=== PATIENT | male | born 1985 | race Caucasian/White ===

== ENCOUNTER 2017-09-22 12:48 | Outpatient (CLI) | payer OTHER ==
--- NOTE | 2017-09-22 16:06 | CT ---
CT ABDOMEN AND PELVIS NONCONTRAST: HISTORY: Renal stones. Scrotal pain. COMPARISON: 12/20/2006 FINDINGS: There is diffuse atrophy of the cortex of the right kidney. Each renal collecting system, ureter, a nd urinary bladder are incompletely distended. Extensive medullary calcification of the right kidney is apparent. Medullary calcification also inv olves the left kidney. A dominant 1.8 cm oval calculus is present within a nondilated calyx at the superior pole of the left kidney. No stones are apparent within the urinary bladder or ureters. Lack of contrast limits evaluation for other abnormalities. Phleboliths are apparent within the ret roperitoneum. There are degenerative changes of the lumbar spine. IMPRESSION: 1. Bilateral renal calculi and medullary calcinosis. The largest calculus is a 1.8 cm calculus at the superior pole left kidney. 2. Right renal atrophy. POS: [facility]
== END 2017-09-22 12:49 | disposition home or self-care (01) ==
LOC: CT 12:48
PROVIDERS: ATTEND Urology
DX: N30.01 Acute cystitis with hematuria (principal); N20.0 Calculus of kidney; N26.1 Atrophy of kidney (terminal); Z87.442 Personal history of urinary calculi
CPT/HCPCS: 74176

== ENCOUNTER 2017-11-01 13:46 | Outpatient (CLI) | payer OTHER ==
--- NOTE | 2017-11-01 17:41 | NM ---
NUCLEAR MEDICINE LASIX RENAL SCAN 11/01/17 COMPARISON: CT abdomen/pelvis 09/22/17. HISTORY: Atrophy of the kidney. TECHNIQUE: A nuclear medicine renal scan was performed using 7.8 millicuries technetium 99m MAG3. Lasix was also given 15 minutes prior to the start of the procedure. FINDINGS: The left renal curve is normal in appearance. The left kidney has a normal time to peak and appropria te washout. The right kidney has a flattened curve with a delay in time to peak. The differential karla al function is 83% on the left and 17% on the right. IMPRESSION: 1. The right renal curve suggests chronic right kidney disease. 2. Normal left renal curve. POS: [facility]
== END 2017-11-01 13:47 | disposition home or self-care (01) ==
LOC: NM 13:46
PROVIDERS: ATTEND Urology
DX: N26.1 Atrophy of kidney (terminal) (principal)
CPT/HCPCS: 78708; A4641; A9562

== ENCOUNTER 2017-12-11 12:19 | Outpatient (CLI) | payer OTHER ==
[2017-12-11 13:49] LABS: Hemoglobin 17.3 g/dL (14.0-18.0); Mean Corpuscular HGB CONC 32.7 g/dL (32.0-36.0); Mean Corpuscular Hemoglobin 30.8 pg (27.0-31.0); Mean Corpuscular Volume 94.3 fl (80.0-94.0); Mean Platelet Volume 8.8 fL (7.4-10.4); Platelet Count 228 thou/uL (130-400); RBC Distribution Width 12.1 % (11.5-14.5); Red Blood Cell (RBC) Count 5.61 mill/uL (4.70-6.10); White Blood Cell (WBC) Count 7.5 thou/uL (4.8-10.8)
[2017-12-11 14:16] LABS: Anion Gap 13 mmol/L (10-20); BUN (Urea Nitrogen) 16 mg/dL (8.9-20.6); Calc. Creatinine Clearance 0 mL/min (70-130); Calcium 9.7 mg/dL (7.8-10.44); Carbon Dioxide 23 mmol/L (22-29); Chloride 109 mmol/L (98-107); Estimated GFR-MDRD 57; Glucose 95 mg/dL (70-105); Potassium 4.3 mmol/L (3.5-5.1); Sodium 141 mmol/L (136-145)
== END 2017-12-11 12:20 | disposition home or self-care (01) ==
LOC: LABBT 12:19
PROVIDERS: ATTEND Urology
DX: Z01.812 Encounter for preprocedural laboratory examination (principal); N20.0 Calculus of kidney
CPT/HCPCS: 80048; 81001; 85027; 87086

== ENCOUNTER 2017-12-19 07:21 | Day surgery (SDC) | payer OTHER ==
[2017-12-11 12:57] VITALS: BMI 22.8
--- NOTE | 2017-12-19 08:35 | RAD ---
ABDOMEN FRONTAL VIEW SERIES TWO VIEWS: Indication: Left renal stones. FINDINGS: There are calcific densities overlying the renal shadows bilaterally, more numerous on the right. The re is a nonspecific bowel gas pattern, with moderate retained fecal material in the colon. Osseous st ructures are intact. IMPRESSION: Calculi are present overlying the bilateral renal shadows, more numerous on the right. POS: [facility]
[2017-12-19] MEDS ORDERED: Levofloxacin 500 mg/D5W 100 ml Premix Bag ONE (09:02)
[2017-12-19] MEDS ORDERED: Midazolam HCl 2 mg/2 ml Vial ONE (09:24)
[2017-12-19] MEDS ORDERED: Fentanyl 100 MCG/2 ML VIAL ONE (09:31)
[2017-12-19] MEDS ORDERED: Iothalamate Meglumine 60% 50 ML VIAL FS ONE (09:35)
[2017-12-19] MEDS ORDERED: Furosemide 20 MG/2 ML VIAL ONE (10:07)
--- NOTE | 2017-12-19 10:55 | OP ---
DATE OF SERVICE: 12/19/2017 PREOPERATIVE DIAGNOSIS: Left renal stone in his solitary functioning kidney. POSTOPERATIVE DIAGNOSIS: Left renal stone in his solitary functioning kidney. PROCEDURE: Cystoscopy, left retrograde pyelogram, insertion of left ureteral stent, 6 x 24 double-J and left extracorporal shock-wave lithotripsy. SURGEON: Dr. Dias. ANESTHESIA: General with laryngeal mask airway. FINDINGS: Adequate fragmentation of a 1.5 cm mid pole stone. COMPLICATIONS: No complications. DRAINS: No drain remaining other than the internal the double-J. ESTIMATED BLOOD LOSS: No blood loss. SPECIMEN: No specimens. INDICATIONS: The patient is a 32-year-old male I saw in the office for stone disease and noted to rizzo ve a nonfunctioning right kidney filled with stone that was relatively asymptomatic as well as a 1.5 cm stone in the left kidney of his solitary functioning kidney, so we opted for definitive therapy. DESCRIPTION OF PROCEDURE: The patient was brought into the room by Anesthesia and laid on table in s upine position. After receiving general anesthetic, legs were placed in lithotomy position. His per ineum was prepped and draped in sterile fashion. Using a 22-Mongolian cystoscope and a 30-degree lens i t was traversed and bladder inspected. The left ureteral orifice was identified and a retrograde donato logram was performed. Measurements were taken for stent. A 6 x 24 double-J was placed. A good coil was visualized in the renal pelvis via fluoroscopy and a good coil was visualized in the bladder via cystoscopy. Scope was broken apart, bladder drained, and then removed in its entirety. The patient was then repositioned supine. In supine position, a total of 3000 shocks at a power of 5-6, maximum rate of 70 per minute, were the n delivered to the stone with good fragmentation noted. The patient tolerated the procedure well and was then awakened and transferred to the PACU in stable condition.
[2017-12-19] MEDS ORDERED: Ondansetron HCl/PF 4 MG/2 ML Vial ONE (15:09)
[2017-12-19] MEDS ORDERED: Lidocaine 1% PF 5 ML VIAL ONE (15:09)
[2017-12-19] MEDS ORDERED: PROPOFOL 200 MG/20 ML VIAL ONE (15:09)
[2017-12-19] MEDS ORDERED: Dexamethasone 20 MG/5 ML VIAL ONE (15:09)
[2017-12-19] MEDS ORDERED: PHENYLEPHRINE-NS 100 MCG/ML 10 ML SYRINGE ONE (15:09)
== END 2017-12-19 12:40 | disposition home or self-care (01) ==
LOC: SDC 07:21
PROVIDERS: ATTEND Urology
PROC: 0T9680Z Drainage of Right Ureter with Drainage Device, Via Natural or Artificial Opening Endoscopic (ICD-10-PCS; principal; 2017-12-19)
PROC: 0TF4XZZ Fragmentation in Left Kidney Pelvis, External Approach (ICD-10-PCS; principal; 2017-12-19)
DX: N20.0 Calculus of kidney (principal); F71 Moderate intellectual disabilities; G40.209 Localization-related (focal) (partial) symptomatic epilepsy and epileptic syndromes with complex partial seizures, not intractable, without status epilepticus; K21.9 Gastro-esophageal reflux disease without esophagitis; N26.1 Atrophy of kidney (terminal); F17.210 Nicotine dependence, cigarettes, uncomplicated; Z79.899 Other long term (current) drug therapy; Z88.1 Allergy status to other antibiotic agents; Z96.9 Presence of functional implant, unspecified
CPT/HCPCS: 74018; C1758; J1100; J1940; J1956; J2001; J2250; J2405; J2704; J3010; Q9961

== ENCOUNTER 2018-01-17 10:20 | Outpatient (CLI) | payer OTHER ==
--- NOTE | 2018-01-17 12:40 | RAD ---
ABDOMEN 1 VIEW: HISTORY: Kidney stones. COMPARISON: Radiograph 12/19/17. FINDINGS: Innumerable calculi are seen projecting over both renal shadows. No dilated air-filled loops of larg e or small bowel. No calculi are seen projecting over the expected location of the ureters. Moderate stool burden with in the rectal vault. IMPRESSION: Bilateral renal calculi This is similar. POS: [facility]
== END 2018-01-17 10:21 | disposition home or self-care (01) ==
LOC: RAD 10:20
PROVIDERS: ATTEND Urology
DX: N20.0 Calculus of kidney (principal)
CPT/HCPCS: 74018

== ENCOUNTER 2018-07-12 10:11 | Outpatient (CLI) | payer OTHER ==
--- NOTE | 2018-07-12 12:20 | CT ---
NONCONTRAST CT ABDOMEN AND PELVIS: Date: 07/12/18 HISTORY: Renal stones. Follow-up evaluation. COMPARISON: 09/22/17. FINDINGS: Again noted are multiple nonobstructing bilateral renal calculi, more numerous on the right, with med ullary calcifications present on the right. Right kidney is small in size with renal cortical thinnin g again present. There is a hypodense lesion seen within the inferior pole left kidney measures 1.7 cm. This cannot be accurately characterized on this exam. Further evaluation with renal ultrasound may be helpful. No renal calculi are seen and there is no hydronephrosis. Urinary bladder is distended and has a norm al nonenhanced CT appearance. The heart is mildly enlarged. The lung bases are clear. The liver, spleen, pancreas, and bilateral adrenal glands demonstrate a grossly normal nonenhanced CT appearance. The appendix is visualized and normal in caliber. The prostate gland is enlarged, measuring 5.5 cm in transverse dimensions. A few scattered colonic diverticula are seen. There has been no interval change compared to the prior exam. IMPRESSION: 1. Hypodense lesion in the inferior pole of left kidney. This was not appreciated on the prior exam, but there was motion artifact through this region on the prior exam. Nonemergent renal ultrasound wo uld be helpful for further characterization. 2. Stable bilateral renal calculi and medullary calcinosis. 3. No evidence of hydronephrosis or hydroureter. The right kidney remains atrophied. 4. Mild cardiomegaly. 5. Enlargement of the prostate gland. POS: [facility]
== END 2018-07-12 10:12 | disposition home or self-care (01) ==
LOC: CT 10:11
PROVIDERS: ATTEND Urology
DX: N20.0 Calculus of kidney (principal); N28.9 Disorder of kidney and ureter, unspecified; N26.1 Atrophy of kidney (terminal); N40.0 Benign prostatic hyperplasia without lower urinary tract symptoms; I51.7 Cardiomegaly
CPT/HCPCS: 74176

== ENCOUNTER 2018-07-24 13:06 | Outpatient (CLI) | payer OTHER ==
[2018-07-24 14:11] LABS: Bilirubin Negative (Negative); Blood, Urine Small (Negative); Clarity CLEAR (Clear); Glucose, Urine (Dipstick) Negative (Negative); Leukocyte Trace (Negative); Nitrite Negative (Negative); Protein, Urine (Dipstick) 100 mg/dL (Neg-Trace); Specific Gravity, Urine 1.022 (1.002-1.036); pH, Urine 6.5 (5.0-9.0)
[2018-07-24 14:13] LABS: Bacteria/HPF None Seen HPF (None Seen); Hyaline Casts/LPF 0-3 HYALINE CAST LPF (0-3 Hyaline); Pathc Cast-AUWi Flag 0.29 (0-2.49); Squamous Epithelial 0-3 HPF (0-3)
[2018-07-24 14:15] LABS: Hemoglobin 18.6 g/dL (14.0-18.0); Mean Corpuscular HGB CONC 33.5 g/dL (32.0-36.0); Mean Corpuscular Hemoglobin 31.7 pg (27.0-31.0); Mean Corpuscular Volume 94.7 fL (78.0-98.0); Mean Platelet Volume 8.5 fL (7.4-10.4); Platelet Count 229 thou/uL (130-400); RBC Distribution Width 12.4 % (11.5-14.5); Red Blood Cell (RBC) Count 5.88 mill/uL (4.70-6.10); White Blood Cell (WBC) Count 6.8 thou/uL (4.8-10.8)
[2018-07-24 14:41] LABS: Anion Gap 16 mmol/L (10-20); BUN (Urea Nitrogen) 25 mg/dL (8.9-20.6); Calc. Creatinine Clearance 0 mL/min (70-130); Calcium 9.6 mg/dL (7.8-10.44); Carbon Dioxide 22 mmol/L (22-29); Chloride 106 mmol/L (98-107); Estimated GFR-MDRD 68; Glucose 86 mg/dL (70-105); Potassium 4.9 mmol/L (3.5-5.1); Sodium 139 mmol/L (136-145)
== END 2018-07-24 13:07 | disposition home or self-care (01) ==
LOC: LABBT 13:06
PROVIDERS: ATTEND Urology
DX: Z01.812 Encounter for preprocedural laboratory examination (principal); N30.01 Acute cystitis with hematuria; N20.0 Calculus of kidney; N26.1 Atrophy of kidney (terminal); R33.9 Retention of urine, unspecified; R82.99 Other abnormal findings in urine; Z87.440 Personal history of urinary (tract) infections
CPT/HCPCS: 80048; 81001; 85027; 87086

== ENCOUNTER 2018-07-31 05:54 | Day surgery (SDC) | payer OTHER ==
[2018-07-24 13:35] VITALS: BMI 22.6
[2018-07-31] MEDS ORDERED: Fentanyl 100 MCG/2 ML VIAL ONE (06:48)
[2018-07-31] MEDS ORDERED: Levofloxacin 500 mg/D5W 100 ml Premix Bag ONE (07:00)
[2018-07-31] MEDS ORDERED: Iothalamate Meglumine 60% 50 ML VIAL FS ONE (07:20)
[2018-07-31] MEDS ORDERED: Furosemide 20 MG/2 ML VIAL ONE ×2 (09:09→09:58)
--- NOTE | 2018-07-31 12:15 | OP ---
DATE OF PROCEDURE: 07/31/2018 PREOPERATIVE DIAGNOSIS: Left renal stones. POSTOPERATIVE DIAGNOSIS: Left renal stones. PROCEDURE: Cystoscopy, left ureteroscopy, left pyeloscopy, holmium laser lithotripsy of renal stones , stone basketing, irrigation of renal unit as well as incision of infundibulum. SURGEON: Yvette Dias M.D. ANESTHESIA: General with ET tube. COMPLICATIONS: Difficult location of stones; however, they were all adequately fragmented, some kasia ined in different calyces as debris, as they were too small to basket or the basket would not manipul ate into the calyx appropriately. SPECIMEN: Stone. ESTIMATED BLOOD LOSS: Minimal. COMPLICATIONS: None. DRAINS: Remaining with 6 x 26 double J. INDICATIONS: The patient is a 32-year-old male with renal insufficiency. He already has a nonfuncti oning right kidney secondary to nephrocalcinosis, who had left [facility] for his stone disease with a sten t previously. There was minimal progress in clearance of his stones, however. Followup CT actually showed a significant improvement, but still a 1 cm stone and other smaller, who we proceeded with juan jose ctive ureteroscopy and holmium laser lithotripsy. TECHNIQUE: The patient was brought into the room by Anesthesia, lying on table in the supine positio n. After receiving general anesthetic, his left leg was lowered, his right leg was elevated, and he was prepped and draped in sterile fashion. Using a 21-Montserratian cystoscope and 30-degrees lens, the ure thra was traversed and the bladder inspected. The left ureteral orifice was identified and a Pollack catheter was entered, but not able to gently be advanced, so a wire was used to get it to advance up to the renal pelvis where fluoroscopy was not working yet, so instead of doing a retrograde pyelogra m assuring for a stent, a wire was left in place and then the ureteral orifices were dilated with a d ilation balloon to a maximum pressure of 12 mmHg. Then, this was taken down and fluoroscopy was work ing at this time. So, a second wire was left in place and they both were remaining. When the scope was broken apart, bladder drained and removed and then it was placed back in and over these wires in order to take final measurements for the Pollack catheter now that the fluoroscopy was working. So, a 6 x 26 was chosen for the end of the case. Then, the cystoscope was removed, and a 36 cm 13- to 15 -Montserratian ureteral sheath was placed gently. Fluoroscopy confirmed adequate placement and so the secon d wire, which aided in this placement was removed. Then the flexible ureteroscope was taken up to th e kidney itself. Attention was turned to the lower pole first where couple of stones were fragmented and irrigated out of the lower poles with significant difficulty with having reaching one of these b ased on its location, but ultimately these were adequately fragmented, Then, attention was turned to an upper pole calyx what was concerned that might actually be contrast, but this was a 1 cm stone, a nd it was identified and a very small infundibulum opening up to this calyx, so the majority of the c ase was then used fragmenting this stone, and it was adequately fragmented. Attempts at basketing an y of these stones out was difficult, but a lot of them actually irrigated out and went into a more op en mouth calyx where those were also then irrigated on the way out and the larger stone was noted in the renal pelvis and followed into the ureter and was too large to be basketed through the sheath, so at this point, the laser fiber was brought back in and dusted that up and removed it and sent for sp ecimen and then attention was turned back to the smallest of the infundibulum where the larger amount of stone was formed. Further fragmentation of these were made and then I used the laser fiber to at tempt to widen the infundibulum to help with passage as well. Minimal bleeding was noted from this m aneuver at the time of stone fragment and debris was noted throughout the renal pelvis. None of thes e were large enough to be able to basket and grab, as it was mainly dust. So, at this point, the ure teroscope was removed and the cystoscope back fed over the wire. A 6 x 26 double-J was placed over t he wire with a good coil visualized in the renal pelvis via fluoroscopy and a good coil visualized in the bladder via cystoscopy. Scope was put back in and bladder drained and then removed in its entir ety. The patient was then awakened and transferred back in stable condition with the instructions on significant percussion, hydration, and Lasix given in order to adequately flush out all the remainin g fragments of dust.
== END 2018-07-31 11:45 | disposition home or self-care (01) ==
LOC: SDC 05:54
PROVIDERS: ATTEND Urology
PROC: 0TF48ZZ Fragmentation in Left Kidney Pelvis, Via Natural or Artificial Opening Endoscopic (ICD-10-PCS; principal; 2018-07-31)
PROC: 0T778DZ Dilation of Left Ureter with Intraluminal Device, Via Natural or Artificial Opening Endoscopic (ICD-10-PCS; principal; 2018-07-31)
DX: N20.0 Calculus of kidney (principal); E83.59 Other disorders of calcium metabolism; N29 Other disorders of kidney and ureter in diseases classified elsewhere; R33.9 Retention of urine, unspecified; N28.9 Disorder of kidney and ureter, unspecified; F79 Unspecified intellectual disabilities; F17.210 Nicotine dependence, cigarettes, uncomplicated; N26.1 Atrophy of kidney (terminal); Z87.440 Personal history of urinary (tract) infections; Z79.899 Other long term (current) drug therapy; Z88.1 Allergy status to other antibiotic agents; Z96.89 Presence of other specified functional implants; Z98.890 Other specified postprocedural states
CPT/HCPCS: 76000; 82365; 88300; C1758; J1940; J1956; J3010; Q9961

== ENCOUNTER 2018-08-28 13:38 | Outpatient (CLI) | payer OTHER ==
--- NOTE | 2018-08-28 15:34 | RAD ---
ABDOMEN ONE VIEW: 08/28/18 HISTORY: 32-year-old male with history of renal stones. COMPARISON: 07/12/18 CT. FINDINGS/IMPRESSION: Numerous right renal calculi are noted. The left renal calculi seen on the prior CT are somewhat obsc ured by overlying gas and fecal material in the colon. No evidence of bowel obstruction. No overt ure teral calculus. POS: [facility]
== END 2018-08-28 13:39 | disposition home or self-care (01) ==
LOC: RAD 13:38
PROVIDERS: ATTEND Urology
DX: N20.0 Calculus of kidney (principal); R19.5 Other fecal abnormalities
CPT/HCPCS: 74018

== ENCOUNTER 2020-10-25 23:33 | Emergency (ER) | payer OTHER ==
--- NOTE | 2020-10-25 23:53 | RAD ---
Exam: Chest one view HISTORY:Chest pain. Comparison: 12/26/2014 FINDINGS: Cardiac silhouette: Normal Aorta: Unremarkable Pulmonary vessels: Normal Costophrenic angles: Clear LUNGS: No masses or consolidation. Pneumothorax: None Osseous abnormalities: None Incidentals: Incompletely evaluated left-sided vagal nerve stimulator. IMPRESSION: No acute cardiopulmonary process.
[2020-10-25 23:57] LABS: #Lymphocytes 2.2 thou/uL (1.20-3.40); #Monocytes 0.6 thou/uL (0.11-0.59); #Neutrophils 4.1 thou/uL (1.40-6.50); %Basophils 0.7 % (0.0-1.0); %Eosinophils 0.6 % (0.0-10.0); %Lymphocytes 31.5 % (21.0-51.0); %Neutrophils 59.2 % (42.0-75.0); Hemoglobin 17.7 g/dL (14.0-18.0); Mean Corpuscular HGB CONC 33.3 g/dL (32.0-36.0); Mean Corpuscular Hemoglobin 31.5 pg (27.0-31.0); Mean Corpuscular Volume 94.5 fL (78.0-98.0); Mean Platelet Volume 8.7 fL (7.4-10.4); Platelet Count 189 thou/uL (130-400); RBC Distribution Width 12.2 % (11.5-14.5); Red Blood Cell (RBC) Count 5.62 mill/uL (4.70-6.10); White Blood Cell (WBC) Count 6.9 thou/uL (4.8-10.8)
[2020-10-26 00:18] LABS: ALT (SGPT) 17 U/L (8-55); AST (SGOT) 17 U/L (5-34); Albumin 4.5 g/dL (3.5-5.0); Alkaline Phosphatase 96 U/L (40-110); Anion Gap 15 mmol/L (10-20); BUN (Urea Nitrogen) 22 mg/dL (8.9-20.6); Bilirubin, Total 1.6 mg/dL (0.2-1.2); Calc. Creatinine Clearance 0 mL/min (70-130); Calcium 9.3 mg/dL (7.8-10.44); Carbon Dioxide 28 mmol/L (22-29); Chloride 101 mmol/L (98-107); Globulin 2.7 g/dL (2.4-3.5); Glucose 98 mg/dL (70-105); Potassium 3.5 mmol/L (3.5-5.1); Protein, Total 7.2 g/dL (6.0-8.3); Sodium 140 mmol/L (136-145)
[2020-10-26] MEDS ORDERED: Ketorolac Tromethamine 30 MG/ML VIAL ONE (00:23)
[2020-10-26] MEDS ORDERED: Acetaminophen 500 MG TAB ONE (00:23)
== END 2020-10-26 00:45 ==
LOC: ERS 23:33
DX: I10 Essential (primary) hypertension (principal); R07.89 Other chest pain; G40.909 Epilepsy, unspecified, not intractable, without status epilepticus; K21.9 Gastro-esophageal reflux disease without esophagitis; F17.210 Nicotine dependence, cigarettes, uncomplicated; Z79.899 Other long term (current) drug therapy
CPT/HCPCS: 36415; 71045; 80053; 84484; 85025; 93005; 96374; J1885

== ENCOUNTER 2020-12-24 10:52 | Emergency (ER) | payer OTHER | END 2020-12-24 11:15 | disposition home or self-care (01) | LOC: ERS 10:52 | DX: Z20.822 Contact with and (suspected) exposure to COVID-19 (principal); G40.909 Epilepsy, unspecified, not intractable, without status epilepticus; I34.0 Nonrheumatic mitral (valve) insufficiency; I10 Essential (primary) hypertension; K21.9 Gastro-esophageal reflux disease without esophagitis; F17.210 Nicotine dependence, cigarettes, uncomplicated | CPT/HCPCS: 99283 ==

== ENCOUNTER 2022-12-01 10:18 | Emergency (ER) | payer OTHER | END 2022-12-01 13:21 | disposition home or self-care (01) | LOC: ERS 10:18 | DX: J06.9 Acute upper respiratory infection, unspecified (principal); G40.909 Epilepsy, unspecified, not intractable, without status epilepticus; I10 Essential (primary) hypertension; K21.9 Gastro-esophageal reflux disease without esophagitis; F17.210 Nicotine dependence, cigarettes, uncomplicated | CPT/HCPCS: 71045; 93005 ==